=== PATIENT | male | born 1995 | race Caucasian/White ===

== ENCOUNTER 2021-06-24 16:45 | Emergency (ER) | payer OTHER ==
[2021-06-24 17:27] LABS: RAPID STREP SCREEN Negative (Negative)
[2021-06-24] MEDS ORDERED: BENZONATATE 100 MG CAPSULE PO STA (18:05)
[2021-06-24] MEDS ORDERED: IBUPROFEN 800 MG TABLET PO STA (18:05)
--- NOTE | 2021-06-24 18:07 | ED Physician Documentation ---
History of Present Illness - Stated complaint Stated Complaint: SORE THROAT - Chief complaint Chief Complaint: Resp - History obtained from History obtained from: Patient, EMS - Additonal information Additional information: Previously healthy two 26-year-old gentleman has been sick for 2 days started with severe shaking chills and developed a sore throat, cough that is nonproductive and runny nose. He has been immunized against COVID. No sick contacts but he lives in the [facility] where there is an outbreak. Review of Systems Constitutional: reports: Fever, Chills, Myalgias, Fatigue Nose: reports: Rhinorrhea / runny nose Throat: reports: Sore throat Respiratory: reports: Dyspnea, Cough PD PAST MEDICAL HISTORY - Present Medications Home Medications: Ambulatory Orders Medication Instructions Recorded Confirmed Benzonatate [Tessalon] 200 mg PO QID PRN #20 cap 06/24/21 Ibuprofen [Motrin] 800 mg PO Q8H PRN #30 tablet 06/24/21 - Allergies Allergies/Adverse Reactions: Allergies Allergy/AdvReac Type Severity Reaction Status Date / Time No Known Drug Allergies Allergy Verified 06/24/21 17:08 PD ED PE NORMAL - Vitals Vital signs reviewed: Yes - General General: Alert and oriented X 3, No acute distress - HEENT HEENT: Other (Mildly red tonsillar pillars without swelling or exudates, no cervical adenopathy) - Neck Neck: Supple, no meningeal sign, No bony TTP - Cardiac Cardiac: RRR, No murmur - Respiratory Respiratory: No respiratory distress, Clear bilaterally - Abdomen Abdomen: Non tender - Derm Derm: Normal color, Warm and dry - Extremities Extremities: No edema, No calf tenderness / cord - Neuro Neuro: Alert and oriented X 3, Normal speech Results - Vitals Vitals: Vital Signs - 24 hr 06/24/21 17:03 Temperature 37.2 C Heart Rate 92 Respiratory 18 Rate Blood Pressure 141/81 H O2 Saturation 100 Oxygen O2 Source Room air - Labs Labs: Laboratory Tests 06/24/21 17:10 Group A Strep Rapid Negative PD MEDICAL DECISION MAKING - ED course ED course: 26-year-old gentleman with kind of classic viral syndrome. It is not consistent with strep, 1 out of 4 [facility] criteria. Presume COVID pending testing given current omicron outbreak. Departure - Departure Disposition: 01 Home, Self Care Clinical Impression: Viral syndrome Condition: Good Record reviewed to determine appropriate education?: Yes Instructions: ED Viral Syndrome Prescriptions: Ibuprofen [Motrin] 800 mg PO Q8H PRN #30 tablet PRN Reason: PAIN &/OR FEVER Benzonatate [Tessalon] 200 mg PO QID PRN #20 cap PRN Reason: Cough Comments: You have a Covid test pending. You need to self quarantine until the result is done and negative. Do not leave your house. Do not get near anybody. The results should be done in 48 to 72 hours. We will call with a positive result, the fastest way to get a negative result for confirmation though is to go to the hospital website at [email or web address], click on the my [employer] tab and sign up for the patient portal. If any friends or family get sick and would like to have a Covid test done, but do not have signs or symptoms that would necessitate being hospitalized, there are multiple local options for Covid testing. [facility] keeps an updated list of testing and vaccination options at: [email or web address]. Forms: Activity restrictions
[2021-06-24 18:29] VITALS: BP 147/90
== END 2021-06-24 19:02 | disposition home or self-care (01) ==
LOC: ED 16:45
DX: B34.9 Viral infection, unspecified (principal); U07.1 COVID-19
CPT/HCPCS: 87070; 87430; 87635; 99283; A9270